=== PATIENT | female | born 1935 | race Hispanic/Latino ===

== ENCOUNTER 2021-11-29 15:50 | Inpatient (IN) | payer MEDICARE ==
[~2021-11-29] VITALS: Ht 170.2 cm; Wt 79.9 kg
[~2021-11-29 15:50] MED LIST: AEC81 PO; ALLO300T2 PO; AMLO-257 PO; ATOR40TA71 PO; BACL10TA PO; LEVO125C4 PO; MELA10TA2 PO; METO-408 PO; OMEP40CA21 PO
[2021-11-29] MEDS ORDERED: ACETAMINOPHEN 500 MG TABLET PO ONE (16:00)
[2021-11-29 16:05] LABS: BASOPHILS % (AUTO) 0.2 % (0.0-5.0); HEMATOCRIT 38.1 % (36-48); LYMPHOCYTES % (AUTO) 6.9 % (21.0-51.0); MEAN CORPUSCULAR HEMOGLOBIN 25.7 pg (27.0-33.0); MEAN CORPUSCULAR HGB CONC 31.8 g/dL (32.0-36.0); MEAN CORPUSCULAR VOLUME 80.9 fL (79-99); MONOCYTES % (AUTO) 3.4 % (3.0-13.0); NEUTROPHILS % (AUTO) 89.1 % (40.0-77.0); PLATELET COUNT (AUTO) 307 K/uL (130-400); RED BLOOD CELL COUNT(AUTO) 4.71 MIL/uL (4.00-5.50); RED CELL DISTRIBUTION WIDTH 13.9 % (11.0-15.5); WHITE BLOOD COUNT (AUTO) 14.5 K/uL (4.8-10.8)
[2021-11-29 16:20] LABS: CREATININE 0.7 mg/dL (0.5-1.5); POTASSIUM 3.4 mmol/L (3.5-5.1)
[2021-11-29 16:21] LABS: INR 1.09 (0.85-1.15); PROTHROMBIN TIME 11.8 SEC (9.6-11.6)
[2021-11-29 16:22] LABS: PARTIAL THROMBOPLASTIN TIME 24.6 SEC (26.3-35.5)
[2021-11-29 16:27] LABS: APPEARANCE,URINE CLOUDY (CLEAR); BILIRUBIN,URINE NEGATIVE (NEGATIVE); COLOR,URINE YELLOW (YELLOW); GLUCOSE, URINE (UA) NEGATIVE (NEGATIVE); KETONES,URINE 40 mg/dL (NEGATIVE); LEUKOCYTE ESTERASE ,URINE MODERATE (NEGATIVE); NITRATE,URINE POSITIVE (NEGATIVE); OCCULT BLOOD,URINE MODERATE (NEGATIVE); PROTEIN,URINE NEGATIVE (NEGATIVE); UROBILINOGEN,URINE 0.2 mg/dL (0.2-1.0)
[2021-11-29 16:31] LABS: BACTERIA,URINE Moderate /HPF (None Seen); MUCUS,URINE Few LPF (None Seen); SQUAMOUS EPITHELIAL CELL,UR Few /HPF (0-2); WBC,URINE 51-100 /HPF (0-1)
[2021-11-29 16:34] LABS: ALBUMIN 2.5 g/dL (3.5-5.0); BILIRUBIN,TOTAL 0.4 mg/dL (0.2-1.0)
[2021-11-29] MEDS: ACETAMINOPHEN 650 MG SUPPOSITORY RC ONE ×2 (16:42→17:06)
[2021-11-29] MEDS ORDERED: ACETAMINOPHEN 650 MG SUPPOSITORY RC ONE (17:00)
[2021-11-29] MEDS ORDERED: 0.9%NACL 1000ML 1,000 ML IV ONE (17:00)
[2021-11-29] MEDS: MEROPENEM 1 GM VIAL IVP SCH (17:05)
[2021-11-29] MEDS ORDERED: ACETAMINOPHEN 650 MG SUPPOSITORY RC PRN (18:30)
[2021-11-29] MEDS ORDERED: THIAMINE HCL 100 MG/ML 2ML VIAL IVP SCH (18:30)
[2021-11-29] MEDS ORDERED: PANTOPRAZOLE 40 MG/VIAL IVP ONE (18:30)
[2021-11-29] MEDS ORDERED: MAGNESIUM 2GM PREMIX 50ML 50 ML IV SCH (20:00)
[2021-11-29] MEDS ORDERED: PANTOPRAZOLE 40 MG/VIAL ONE (20:17)
[2021-11-29] MEDS: LACTATED RINGERS 1000ML 1,000 ML IV SCH (20:24)
[2021-11-29] MEDS ORDERED: NITROGLYCERIN 1GM OINT 1 INCH/1GM TD ONE (22:03)
[2021-11-29] MEDS ORDERED: MORPHINE 2 MG SYG ONE (22:03)
[2021-11-29] MEDS ORDERED: MORPHINE 2 MG SYG IVP PRN (22:30)
[2021-11-29] MEDS ORDERED: NITROGLYCERIN 1GM OINT 1 INCH/1GM TD SCH (22:30)
[2021-11-29 23:48] VITALS: BP 124/66
[2021-11-29] MEDS ORDERED: VENLAFAXINE PO (23:49)
[2021-11-30 00:34] VITALS: BP 122/63
[2021-11-30] MEDS ORDERED: 0.9%NACL 10ML VIAL ONE (00:43)
[2021-11-30] MEDS: MEROPENEM 1 GM VIAL IVP SCH ×3 (00:50→16:23)
[2021-11-30 04:00] VITALS: BP 125/62
[2021-11-30 05:27] LABS: BASOPHILS % (AUTO) 0.3 % (0.0-5.0); EOSINOPHILS % (AUTO) 0.4 % (0.0-8.0); HEMATOCRIT 34.7 % (36-48); LYMPHOCYTES % (AUTO) 13.1 % (21.0-51.0); MEAN CORPUSCULAR HEMOGLOBIN 26.4 pg (27.0-33.0); MEAN CORPUSCULAR HGB CONC 32.3 g/dL (32.0-36.0); MEAN CORPUSCULAR VOLUME 81.6 fL (79-99); MONOCYTES % (AUTO) 6.2 % (3.0-13.0); NEUTROPHILS % (AUTO) 79.6 % (40.0-77.0); PLATELET COUNT (AUTO) 272 K/uL (130-400); RED BLOOD CELL COUNT(AUTO) 4.25 MIL/uL (4.00-5.50); RED CELL DISTRIBUTION WIDTH 14.2 % (11.0-15.5); WHITE BLOOD COUNT (AUTO) 11.4 K/uL (4.8-10.8)
[2021-11-30] MEDS: NITROGLYCERIN 1GM OINT 1 INCH/1GM TD SCH ×2 (05:50→13:08)
[2021-11-30 05:51] LABS: ALBUMIN 2.1 g/dL (3.5-5.0); BILIRUBIN,TOTAL 0.5 mg/dL (0.2-1.0); CREATININE 0.6 mg/dL (0.5-1.5); CRP QUANTITATIVE 104.6 mg/L (0.00-9.0); MAGNESIUM 1.6 mg/dL (1.80-2.40); THYROID STIMULATING HORMONE 1.9 uIU/mL (0.36-3.74); TOTAL PROTEIN, SERUM 6.8 g/dL (6.0-8.3)
[2021-11-30] MEDS: HEPARIN 5,000 UNIT VIAL SQ SCH ×2 (05:51→16:23)
[2021-11-30 05:54] LABS: POTASSIUM 2.7 mmol/L (3.5-5.1)
[2021-11-30] MEDS: POTASSIUM CHLORIDE 20MEQ/100ML 100 ML IV PRN ×3 (06:03→14:53)
[2021-11-30] MEDS: LACTATED RINGERS 1000ML 1,000 ML IV SCH ×2 (06:38→21:38)
[2021-11-30 07:19] VITALS: BP 130/62
[2021-11-30] MEDS: METOPROLOL SUCCINATE 50 MG TAB.SR.24H PO SCH ×3 (09:00→21:36)
[2021-11-30] MEDS ORDERED: PANTOPRAZOLE 40 MG/VIAL IVP SCH (09:00)
[2021-11-30 11:08] VITALS: BP 126/67
[2021-11-30 15:26] VITALS: BP 123/57
[2021-11-30] MEDS ORDERED: HONEY 1 APPL/ML TUBE TP SCH (15:30)
[2021-11-30 19:43] VITALS: BP 128/68
[2021-11-30] MEDS: BALSAM PERU/CASTOR OIL 60 GM TUBE TP SCH (21:38)
[2021-12-01] VITALS: BP_SYST 122; BP_SYST 127; BP_DIAS 63; BP_DIAS 64
[2021-12-01] MEDS: MEROPENEM 1 GM VIAL IVP SCH ×3 (01:14→16:16)
[2021-12-01] MEDS: ENOXAPARIN SODIUM 30 MG/0.3 ML SQ SCH (04:22)
[2021-12-01 04:25] VITALS: BP 135/55
[2021-12-01 07:07] LABS: HEMATOCRIT 30.4 % (36-48); MEAN CORPUSCULAR HEMOGLOBIN 25.9 pg (27.0-33.0); MEAN CORPUSCULAR HGB CONC 31.3 g/dL (32.0-36.0); MEAN CORPUSCULAR VOLUME 82.8 fL (79-99); RED BLOOD CELL COUNT(AUTO) 3.67 MIL/uL (4.00-5.50); RED CELL DISTRIBUTION WIDTH 14.3 % (11.0-15.5); WHITE BLOOD COUNT (AUTO) 10.7 K/uL (4.8-10.8)
[2021-12-01 07:15] VITALS: BP 132/62
[2021-12-01] MEDS: LACTATED RINGERS 1000ML 1,000 ML IV SCH ×2 (07:47→20:30)
[2021-12-01] MEDS: BALSAM PERU/CASTOR OIL 60 GM TUBE TP SCH ×3 (07:50→21:39)
[2021-12-01] MEDS: METOPROLOL SUCCINATE 50 MG TAB.SR.24H PO SCH (07:50)
[2021-12-01 07:54] LABS: CREATININE 0.6 mg/dL (0.5-1.5); POTASSIUM 3.3 mmol/L (3.5-5.1)
[2021-12-01] MEDS: POTASSIUM CHLORIDE 20MEQ/100ML 100 ML IV PRN ×3 (07:59→22:27)
[2021-12-01] MEDS ORDERED: HONEY 1 APPL/ML TUBE TP SCH (09:00)
[2021-12-01] MEDS: METOPROLOL TARTRATE 25 MG TAB PO SCH ×2 (09:29→21:39)
[2021-12-01] MEDS: ASPIRIN 81MG CHEW TAB PO SCH (09:29)
[2021-12-01 10:55] VITALS: BP 132/69
[2021-12-01 11:54] LABS: MYOGLOBIN 295 ng/mL (10-92)
[2021-12-01 11:58] LABS: CREATINE KINASE, TOTAL 424 U/L (21-232)
[2021-12-01 15:00] VITALS: BP 125/68
[2021-12-01 19:25] VITALS: BP 130/62
[2021-12-02] VITALS: BP 127/64
[2021-12-02] MEDS: MEROPENEM 1 GM VIAL IVP SCH (01:21)
[2021-12-02 04:00] VITALS: BP 140/63
[2021-12-02] MEDS: ENOXAPARIN SODIUM 30 MG/0.3 ML SQ SCH (05:46)
[2021-12-02 08:00] VITALS: BP 152/86
[2021-12-02] MEDS ORDERED: MEROPENEM 1 GM VIAL ONE (08:18)
[2021-12-02] MEDS: ASPIRIN 81MG CHEW TAB PO SCH (08:27)
[2021-12-02] MEDS: METOPROLOL TARTRATE 25 MG TAB PO SCH (08:27)
[2021-12-02] MEDS: LACTATED RINGERS 1000ML 1,000 ML IV SCH (08:33)
[2021-12-02] MEDS: BALSAM PERU/CASTOR OIL 60 GM TUBE TP SCH ×2 (08:34→14:36)
[2021-12-02 09:04] LABS: CREATINE KINASE, TOTAL 194 U/L (21-232); MYOGLOBIN 114 ng/mL (10-92)
[2021-12-02] MEDS ORDERED: CEFUROXIME AXETIL 250 MG TABLET PO SCH (11:46)
[2021-12-02 12:00] VITALS: BP 148/58
[2021-12-02] MEDS ORDERED: CEFU250T87 PO (12:58)
[2021-12-02] MEDS ORDERED: ASPI-1005 PO (12:58)
[2021-12-02] MEDS ORDERED: STAR227P PO (13:00)
[2021-12-02 16:00] VITALS: BP 134/82
== END 2021-12-02 17:40 | disposition home or self-care (01) | DRG 871 ==
LOC: EDH 15:50 → EDHIP 18:21 → 2DH 23:43
PROVIDERS: ADMIT Internal Medicine; ATTEND Internal Medicine
DX: A41.9 Sepsis, unspecified organism (principal); E43 Unspecified severe protein-calorie malnutrition; N39.0 Urinary tract infection, site not specified; M62.82 Rhabdomyolysis; I24.8 Other forms of acute ischemic heart disease; I69.351 Hemiplegia and hemiparesis following cerebral infarction affecting right dominant side; Z68.27 Body mass index [BMI] 27.0-27.9, adult; Z88.0 Allergy status to penicillin; Z88.8 Allergy status to other drugs, medicaments and biological substances; Z20.822 Contact with and (suspected) exposure to COVID-19; F03.90 Unspecified dementia, unspecified severity, without behavioral disturbance, psychotic disturbance, mood disturbance, and anxiety; M19.90 Unspecified osteoarthritis, unspecified site; Z87.440 Personal history of urinary (tract) infections; E11.9 Type 2 diabetes mellitus without complications; I10 Essential (primary) hypertension; E87.6 Hypokalemia; E83.42 Hypomagnesemia; I25.10 Atherosclerotic heart disease of native coronary artery without angina pectoris; Z74.01 Bed confinement status; L89.152 Pressure ulcer of sacral region, stage 2; Z82.49 Family history of ischemic heart disease and other diseases of the circulatory system; E03.9 Hypothyroidism, unspecified; E78.5 Hyperlipidemia, unspecified; L89.509 Pressure ulcer of unspecified ankle, unspecified stage; M81.0 Age-related osteoporosis without current pathological fracture
CPT/HCPCS: 36415; 71045; 74018; 74230; 76770; 80048; 80053; 81001; 82550; 83605; 83735; 83874; 84132; 84145; 84443; 84484; 85025; 85027; 85610; 85651; 85730; 86140; 87040; 87077; 87088; 87186; 87635; 87804; 87880; 92610; 92611; 93005; 93970; 99291; C9113; G0378; J1644; J1650; J2185; J3475; J3480; J7120

== ENCOUNTER 2022-01-17 17:26 | Emergency (ER) | payer MEDICARE ==
[~2022-01-17] VITALS: Ht 165.1 cm; Wt 90.7 kg
[~2022-01-17 17:26] MED LIST changes: -AEC81 PO; +ASPI-1005 PO; +CEFU250T87 PO; +STAR227P PO; +VENLAFAXINE PO
[2022-01-17] MEDS ORDERED: 0.9%NACL 1000ML 1,000 ML IV ONE (18:00)
[2022-01-17 18:06] LABS: BASOPHILS % (AUTO) 0.2 % (0.0-5.0); EOSINOPHILS % (AUTO) 0.3 % (0.0-8.0); LYMPHOCYTES % (AUTO) 15.8 % (21.0-51.0); MEAN CORPUSCULAR HEMOGLOBIN 25.3 pg (27.0-33.0); MEAN CORPUSCULAR HGB CONC 30.5 g/dL (32.0-36.0); MEAN CORPUSCULAR VOLUME 82.8 fL (79-99); MONOCYTES % (AUTO) 4.8 % (3.0-13.0); NEUTROPHILS % (AUTO) 78.4 % (40.0-77.0); PLATELET COUNT (AUTO) 312 K/uL (130-400); RED BLOOD CELL COUNT(AUTO) 4.47 MIL/uL (4.00-5.50); RED CELL DISTRIBUTION WIDTH 16.8 % (11.0-15.5); WHITE BLOOD COUNT (AUTO) 12.2 K/uL (4.8-10.8)
[2022-01-17 18:23] LABS: APPEARANCE,URINE Clear (CLEAR); BILIRUBIN,URINE Negative (NEGATIVE); COLOR,URINE Yellow (YELLOW); GLUCOSE, URINE (UA) Negative (NEGATIVE); KETONES,URINE 15 mg/dL (NEGATIVE); LEUKOCYTE ESTERASE ,URINE Small (NEGATIVE); NITRATE,URINE Positive (NEGATIVE); OCCULT BLOOD,URINE Trace (NEGATIVE); PROTEIN,URINE POS 1+ mg/dL (NEGATIVE)
[2022-01-17 18:28] LABS: CREATININE 0.6 mg/dL (0.5-1.5); POTASSIUM 3.2 mmol/L (3.5-5.1)
[2022-01-17 18:35] LABS: BACTERIA,URINE Few /HPF (None Seen); RBC,URINE 0-1 /HPF (0-1)
[2022-01-17 18:36] LABS: SQUAMOUS EPITHELIAL CELL,UR Rare /HPF (0-2)
[2022-01-17 18:43] LABS: ALBUMIN 2.4 g/dL (3.5-5.0); BILIRUBIN,TOTAL 0.4 mg/dL (0.2-1.0); TOTAL PROTEIN, SERUM 7.6 g/dL (6.0-8.3)
[2022-01-18 02:10] VITALS: BP 155/85
== END 2022-01-18 02:30 | disposition home or self-care (01) ==
LOC: EDH 17:26
DX: R00.0 Tachycardia, unspecified (principal); T83.091A Other mechanical complication of indwelling urethral catheter, initial encounter; E11.9 Type 2 diabetes mellitus without complications; I10 Essential (primary) hypertension; M81.0 Age-related osteoporosis without current pathological fracture; Z88.0 Allergy status to penicillin; Z79.82 Long term (current) use of aspirin; Z79.899 Other long term (current) drug therapy; Z98.890 Other specified postprocedural states; Z86.73 Personal history of transient ischemic attack (TIA), and cerebral infarction without residual deficits
CPT/HCPCS: 36415; 80053; 81001; 82550; 83605; 84484; 85025; 87040 ×2; 87088; 93005; 99285; J7030

== ENCOUNTER 2022-03-10 17:49 | Inpatient (IN) | payer MEDICARE ==
[~2022-03-10] VITALS: Ht 170.2 cm; Wt 73.1 kg
[2022-03-10 18:30] LABS: BASOPHILS % (AUTO) 0.2 % (0.0-5.0); EOSINOPHILS % (AUTO) 1.3 % (0.0-8.0); HEMATOCRIT 34.2 % (36-48); LYMPHOCYTES % (AUTO) 20.6 % (21.0-51.0); MEAN CORPUSCULAR HGB CONC 31.6 g/dL (32.0-36.0); MEAN CORPUSCULAR VOLUME 82.4 fL (79-99); MONOCYTES % (AUTO) 5.5 % (3.0-13.0); NEUTROPHILS % (AUTO) 71.9 % (40.0-77.0); PLATELET COUNT (AUTO) 270 K/uL (130-400); RED BLOOD CELL COUNT(AUTO) 4.15 MIL/uL (4.00-5.50); RED CELL DISTRIBUTION WIDTH 17.1 % (11.0-15.5); WHITE BLOOD COUNT (AUTO) 11.9 K/uL (4.8-10.8)
[2022-03-10 18:41] LABS: PROTHROMBIN TIME 10.9 SEC (9.6-11.6)
[2022-03-10 18:42] LABS: PARTIAL THROMBOPLASTIN TIME 23.1 SEC (26.3-35.5)
[2022-03-10 18:47] LABS: ALBUMIN 1.8 g/dL (3.5-5.0); CREATININE 0.6 mg/dL (0.5-1.5); TOTAL PROTEIN, SERUM 6.6 g/dL (6.0-8.3)
[2022-03-10 18:54] LABS: B-TYPE NATRIURETIC PEPTIDE 255 pg/mL (0-100)
[2022-03-10 19:01] LABS: POTASSIUM 2.7 mmol/L (3.5-5.1)
[2022-03-10 19:38] LABS: APPEARANCE,URINE CLOUDY (CLEAR); BILIRUBIN,URINE NEGATIVE (NEGATIVE); COLOR,URINE YELLOW (YELLOW); GLUCOSE, URINE (UA) NEGATIVE (NEGATIVE); KETONES,URINE NEGATIVE (NEGATIVE); LEUKOCYTE ESTERASE ,URINE LARGE (NEGATIVE); NITRATE,URINE POSITIVE (NEGATIVE); OCCULT BLOOD,URINE LARGE (NEGATIVE); PROTEIN,URINE NEGATIVE (NEGATIVE)
[2022-03-10 19:45] LABS: WBC,URINE 26-50 /HPF (0-1)
[2022-03-10 19:46] LABS: BACTERIA,URINE Moderate /HPF (None Seen); CALCIUM OXALATE CRYSTALS,UR Few /LPF (None Seen); MUCUS,URINE Few LPF (None Seen); SQUAMOUS EPITHELIAL CELL,UR Few /HPF (0-2)
[2022-03-10 19:47] LABS: TRANSITIONAL EPI CELLS,URINE Few /HPF (None Seen)
[2022-03-10] MEDS ORDERED: 0.9% NACL 500ML IV.SOLN 500 ML IV ONE (20:18)
[2022-03-10] MEDS ORDERED: NS-20 MEQ KCL 1000ML 1,000 ML IV ONE (20:18)
[2022-03-10] MEDS ORDERED: ONDANSETRON 4MG INJ IV PRN (20:30)
[2022-03-10] MEDS ORDERED: ACETAMINOPHEN 325 MG TAB PO PRN (20:30)
[2022-03-10] MEDS ORDERED: MEROPENEM 1 GM VIAL IVP ONE (20:30)
[2022-03-10] MEDS ORDERED: LACTATED RINGERS 1000ML 1,848 ML IV ONE (20:30)
[2022-03-10] MEDS ORDERED: NOREPINEPHRIN 4MG/NS 250ML 250 ML IV SCH (20:30)
[2022-03-10] MEDS ORDERED: VANCOMYCIN PROTOCOL PER PHARMACY IV SCH (20:30)
[2022-03-10 20:42] LABS: CREATININE,URINE RANDOM 30 mg/dL (30-135); SODIUM,URINE RANDOM 146 mmol/l (40-220)
[2022-03-10] MEDS ORDERED: VANCOMYCIN 1.25 GM/250 ML BAG 250 ML IV ONE (21:00)
[2022-03-10] MEDS: LACTATED RINGERS 1000ML 1,000 ML IV SCH (21:37)
[2022-03-10] MEDS: CEFEPIME HCL 1 GM VIAL IVP SCH (21:38)
[2022-03-11] MEDS: HEPARIN 5,000 UNIT VIAL SQ SCH ×3 (02:56→17:45)
[2022-03-11] MEDS ORDERED: TRAM50TA4 PO (06:29)
[2022-03-11] MEDS ORDERED: DOCU100C33 PO (06:37)
[2022-03-11] MEDS ORDERED: ZINC220T4 PO (06:37)
[2022-03-11] MEDS ORDERED: BACL10TA PO (06:37)
[2022-03-11 07:34] LABS: BASOPHILS % (AUTO) 0.4 % (0.0-5.0); EOSINOPHILS % (AUTO) 0.9 % (0.0-8.0); HEMATOCRIT 35.7 % (36-48); LYMPHOCYTES % (AUTO) 21.7 % (21.0-51.0); MEAN CORPUSCULAR HEMOGLOBIN 25.9 pg (27.0-33.0); MEAN CORPUSCULAR HGB CONC 31.7 g/dL (32.0-36.0); MEAN CORPUSCULAR VOLUME 81.7 fL (79-99); MONOCYTES % (AUTO) 5.4 % (3.0-13.0); NEUTROPHILS % (AUTO) 70.7 % (40.0-77.0); PLATELET COUNT (AUTO) 275 K/uL (130-400); RED BLOOD CELL COUNT(AUTO) 4.37 MIL/uL (4.00-5.50); RED CELL DISTRIBUTION WIDTH 16.9 % (11.0-15.5); WHITE BLOOD COUNT (AUTO) 11.3 K/uL (4.8-10.8)
[2022-03-11] MEDS: LACTATED RINGERS 1000ML 1,000 ML IV SCH ×2 (07:42→16:30)
[2022-03-11 07:51] LABS: CREATININE 0.5 mg/dL (0.5-1.5); MAGNESIUM 1.2 mg/dL (1.80-2.40); POTASSIUM 3.1 mmol/L (3.5-5.1)
[2022-03-11] MEDS: CEFEPIME HCL 1 GM VIAL IVP SCH ×2 (08:31→22:57)
[2022-03-11] MEDS: VANCOMYCIN 1G/250ML KIT 250 ML IV SCH (08:31)
[2022-03-11] MEDS: FAMOTIDINE 20MG VIAL IV SCH (08:31)
[2022-03-11] MEDS ORDERED: ENOXAPARIN SODIUM 40 MG/0.4 ML SYRINGE SQ SCH (09:00)
[2022-03-11] MEDS ORDERED: MAGNESIUM 2GM PREMIX 50ML 50 ML IV ONE (10:06)
[2022-03-11] MEDS: MAGNESIUM 2GM PREMIX 50ML 50 ML IV SCH ×2 (10:19→11:25)
[2022-03-11] MEDS: ASCORBIC ACID 500 MG TAB PO SCH (10:20)
[2022-03-11] MEDS: ZINC SULFATE 220 CAPSULE PO SCH (10:20)
[2022-03-11] MEDS ORDERED: LIDOCAINE HCL 1% 10 ML VIAL ONE (11:16)
[2022-03-11] MEDS: LIDOCAINE HCL-MPF 1% 2ML VIAL IV PRN ×2 (11:24→15:01)
[2022-03-11] MEDS: POTASSIUM CHLORIDE 20MEQ/100ML 100 ML IV PRN ×2 (11:24→15:01)
[2022-03-11] MEDS: NYSTATIN 15 GM POWDER TP SCH ×3 (12:04→23:11)
[2022-03-11] MEDS: ACETAMINOPHEN 325 MG TAB PO PRN (12:05)
[2022-03-11] MEDS: NEUTRA-PHOS PACKET 1 EACH PO SCH ×3 (13:27→23:44)
[2022-03-11 16:57] VITALS: BP 92/52
[2022-03-11 19:00] VITALS: BP 116/41
[2022-03-12] VITALS: BP 134/65
[2022-03-12] MEDS: HEPARIN 5,000 UNIT VIAL SQ SCH ×3 (01:39→17:20)
[2022-03-12] MEDS: LACTATED RINGERS 1000ML 1,000 ML IV SCH ×4 (02:50→22:58)
[2022-03-12 04:00] VITALS: BP 122/65
[2022-03-12 07:58] LABS: HEMATOCRIT 30.1 % (36-48); MEAN CORPUSCULAR HEMOGLOBIN 25.3 pg (27.0-33.0); MEAN CORPUSCULAR HGB CONC 31.2 g/dL (32.0-36.0); MEAN CORPUSCULAR VOLUME 80.9 fL (79-99); RED BLOOD CELL COUNT(AUTO) 3.72 MIL/uL (4.00-5.50); RED CELL DISTRIBUTION WIDTH 17.2 % (11.0-15.5); WHITE BLOOD COUNT (AUTO) 10.1 K/uL (4.8-10.8)
[2022-03-12 08:00] VITALS: BP 133/55
[2022-03-12 08:10] LABS: CREATININE 0.6 mg/dL (0.5-1.5); MAGNESIUM 1.9 mg/dL (1.80-2.40); PHOSPHORUS 2.2 mg/dL (2.5-4.9); POTASSIUM 3.3 mmol/L (3.5-5.1)
[2022-03-12 08:13] LABS: INR 1.01 (0.85-1.15)
[2022-03-12 08:15] LABS: PARTIAL THROMBOPLASTIN TIME 34.5 SEC (26.3-35.5)
[2022-03-12] MEDS: NEUTRA-PHOS PACKET 1 EACH PO SCH ×3 (09:00→17:21)
[2022-03-12] MEDS ORDERED: FAMOTIDINE 20MG VIAL IV SCH (09:00)
[2022-03-12] MEDS: VANCOMYCIN 1G/250ML KIT 250 ML IV SCH (10:03)
[2022-03-12] MEDS: CEFEPIME HCL 1 GM VIAL IVP SCH ×2 (10:03→19:47)
[2022-03-12] MEDS: FAMOTIDINE 20MG VIAL IV SCH (10:04)
[2022-03-12] MEDS: ASCORBIC ACID 500 MG TAB PO SCH (10:04)
[2022-03-12] MEDS: ZINC SULFATE 220 CAPSULE PO SCH (10:04)
[2022-03-12] MEDS: NYSTATIN 15 GM POWDER TP SCH ×3 (10:14→19:48)
[2022-03-12 12:00] VITALS: BP 135/67
[2022-03-12 12:28] LABS: % IRON SATURATION 27.6 % (22-44)
[2022-03-12 12:43] LABS: RETICULOCYTE % (AUTO) 1.5 % (0.42-2.23)
[2022-03-12] MEDS: KCL 20 MEQ ERTAB PO PRN ×3 (12:48→18:46)
[2022-03-12 16:00] VITALS: BP 151/45
[2022-03-12] MEDS: 0.9%NACL 10ML VIAL IV SCH ×2 (17:21→22:59)
[2022-03-12 19:00] VITALS: BP 117/58
[2022-03-12] MEDS: METOPROLOL TARTRATE 25 MG TAB PO SCH (19:47)
[2022-03-12] MEDS: BALSAM PERU/CASTOR OIL 60 GM TUBE TP SCH (19:48)
[2022-03-12] MEDS: HONEY 1 APPL/ML TUBE TP SCH (19:48)
[2022-03-12] MEDS ORDERED: VANCOMYCIN 500MG+NS 100ML 100 ML IV SCH (21:00)
[2022-03-13] VITALS: BP 124/58
[2022-03-13] MEDS: HEPARIN 5,000 UNIT VIAL SQ SCH ×3 (00:28→18:26)
[2022-03-13 04:00] VITALS: BP 115/52
[2022-03-13] MEDS: ACETAMINOPHEN 325 MG TAB PO PRN (05:22)
[2022-03-13 08:00] VITALS: BP 120/66
[2022-03-13] MEDS: FAMOTIDINE 20MG VIAL IV SCH (08:14)
[2022-03-13] MEDS: 0.9%NACL 10ML VIAL IV SCH ×2 (08:14→18:24)
[2022-03-13] MEDS: CEFEPIME HCL 1 GM VIAL IVP SCH ×2 (08:15→21:17)
[2022-03-13] MEDS: METOPROLOL TARTRATE 25 MG TAB PO SCH ×2 (08:15→21:20)
[2022-03-13] MEDS: ASCORBIC ACID 500 MG TAB PO SCH (08:15)
[2022-03-13] MEDS: ZINC SULFATE 220 CAPSULE PO SCH (08:15)
[2022-03-13] MEDS: NYSTATIN 15 GM POWDER TP SCH ×3 (08:16→21:23)
[2022-03-13] MEDS: BALSAM PERU/CASTOR OIL 60 GM TUBE TP SCH ×2 (08:16→21:24)
[2022-03-13] MEDS: HONEY 1 APPL/ML TUBE TP SCH (08:16)
[2022-03-13 12:00] VITALS: BP 105/44
[2022-03-13 16:00] VITALS: BP 106/45
[2022-03-13] MEDS: LACTATED RINGERS 1000ML 1,000 ML IV SCH (18:30)
[2022-03-13 19:00] VITALS: BP 138/67
[2022-03-14] VITALS (7 sets, daily range): BP systolic 88–143; BP diastolic 44–78
[2022-03-14] MEDS: 0.9%NACL 10ML VIAL IV SCH ×3 (01:11→17:08)
[2022-03-14] MEDS: HEPARIN 5,000 UNIT VIAL SQ SCH ×3 (01:37→17:09)
[2022-03-14] MEDS: LACTATED RINGERS 1000ML 1,000 ML IV SCH (03:51)
[2022-03-14 07:44] LABS: BASOPHILS % (AUTO) 0.4 % (0.0-5.0); EOSINOPHILS % (AUTO) 1.4 % (0.0-8.0); HEMATOCRIT 31.4 % (36-48); LYMPHOCYTES % (AUTO) 29.2 % (21.0-51.0); MEAN CORPUSCULAR HEMOGLOBIN 25.8 pg (27.0-33.0); MEAN CORPUSCULAR HGB CONC 31.5 g/dL (32.0-36.0); MEAN CORPUSCULAR VOLUME 81.8 fL (79-99); MONOCYTES % (AUTO) 5.9 % (3.0-13.0); NEUTROPHILS % (AUTO) 62.5 % (40.0-77.0); PLATELET COUNT (AUTO) 244 K/uL (130-400); RED BLOOD CELL COUNT(AUTO) 3.84 MIL/uL (4.00-5.50); RED CELL DISTRIBUTION WIDTH 17.4 % (11.0-15.5); WHITE BLOOD COUNT (AUTO) 10.1 K/uL (4.8-10.8)
[2022-03-14 08:06] LABS: ALBUMIN 1.5 g/dL (3.5-5.0); CREATININE 0.6 mg/dL (0.5-1.5); POTASSIUM 3.5 mmol/L (3.5-5.1); TOTAL PROTEIN, SERUM 5.6 g/dL (6.0-8.3)
[2022-03-14] MEDS: FAMOTIDINE 20MG VIAL IV SCH (08:49)
[2022-03-14] MEDS: METOPROLOL TARTRATE 25 MG TAB PO SCH ×2 (08:49→20:43)
[2022-03-14] MEDS: CEFEPIME HCL 1 GM VIAL IVP SCH ×2 (08:49→20:23)
[2022-03-14] MEDS: ZINC SULFATE 220 CAPSULE PO SCH (08:49)
[2022-03-14] MEDS: ASCORBIC ACID 500 MG TAB PO SCH (08:50)
[2022-03-14] MEDS: MAGNESIUM 2GM PREMIX 50ML 50 ML IV SCH (08:50)
[2022-03-14] MEDS: BALSAM PERU/CASTOR OIL 60 GM TUBE TP SCH ×2 (08:57→20:45)
[2022-03-14] MEDS: HONEY 1 APPL/ML TUBE TP SCH (08:57)
[2022-03-14] MEDS: NYSTATIN 15 GM POWDER TP SCH ×3 (08:57→20:45)
[2022-03-14] MEDS: LIDOCAINE HCL-MPF 1% 2ML VIAL IV PRN ×2 (12:52→17:10)
[2022-03-14] MEDS: POTASSIUM CHLORIDE 20MEQ/100ML 100 ML IV PRN ×2 (12:52→17:10)
[2022-03-15] MEDS: 0.9%NACL 10ML VIAL IV SCH ×4 (00:52→21:06)
[2022-03-15] MEDS: HEPARIN 5,000 UNIT VIAL SQ SCH ×3 (02:14→17:40)
[2022-03-15 03:13] VITALS: BP 107/52
[2022-03-15 07:13] VITALS: BP 123/55
[2022-03-15 08:36] LABS: HEMATOCRIT 28.7 % (36-48); MEAN CORPUSCULAR HEMOGLOBIN 25.8 pg (27.0-33.0); MEAN CORPUSCULAR HGB CONC 31.4 g/dL (32.0-36.0); MEAN CORPUSCULAR VOLUME 82.2 fL (79-99); RED BLOOD CELL COUNT(AUTO) 3.49 MIL/uL (4.00-5.50); RED CELL DISTRIBUTION WIDTH 17.5 % (11.0-15.5); WHITE BLOOD COUNT (AUTO) 8.5 K/uL (4.8-10.8)
[2022-03-15 08:49] LABS: CREATININE 0.6 mg/dL (0.5-1.5); POTASSIUM 3.8 mmol/L (3.5-5.1)
[2022-03-15] MEDS: FAMOTIDINE 20MG VIAL IV SCH (10:31)
[2022-03-15] MEDS: CEFEPIME HCL 1 GM VIAL IVP SCH ×2 (10:31→21:05)
[2022-03-15] MEDS: METOPROLOL TARTRATE 25 MG TAB PO SCH ×2 (10:31→21:05)
[2022-03-15] MEDS: HONEY 1 APPL/ML TUBE TP SCH ×2 (10:32→21:06)
[2022-03-15] MEDS: ASCORBIC ACID 500 MG TAB PO SCH (10:32)
[2022-03-15] MEDS: ZINC SULFATE 220 CAPSULE PO SCH (10:32)
[2022-03-15] MEDS: NYSTATIN 15 GM POWDER TP SCH ×3 (10:32→21:05)
[2022-03-15] MEDS: BALSAM PERU/CASTOR OIL 60 GM TUBE TP SCH ×2 (10:33→21:05)
[2022-03-15 12:09] VITALS: BP 130/58
[2022-03-15 16:20] VITALS: BP 130/62
[2022-03-15 20:11] VITALS: BP 127/71
[2022-03-15 23:40] VITALS: BP 128/53
[2022-03-16] MEDS: HEPARIN 5,000 UNIT VIAL SQ SCH ×3 (01:55→17:41)
[2022-03-16 03:14] VITALS: BP 116/64
[2022-03-16] MEDS: LEVOTHYROXINE 125 MCG TABLET PO SCH (05:52)
[2022-03-16 07:30] VITALS: BP 144/66
[2022-03-16] MEDS: CEFEPIME HCL 1 GM VIAL IVP SCH ×2 (09:03→20:46)
[2022-03-16] MEDS: FAMOTIDINE 20MG VIAL IV SCH (09:03)
[2022-03-16] MEDS: ATORVASTATIN 40 MG TABLET PO SCH (09:04)
[2022-03-16] MEDS: ASCORBIC ACID 500 MG TAB PO SCH (09:04)
[2022-03-16] MEDS: METOPROLOL TARTRATE 25 MG TAB PO SCH ×2 (09:04→20:47)
[2022-03-16] MEDS: ASPIRIN 81MG CHEW TAB PO SCH (09:04)
[2022-03-16] MEDS: ZINC SULFATE 220 CAPSULE PO SCH (09:04)
[2022-03-16] MEDS: HONEY 1 APPL/ML TUBE TP SCH ×2 (09:05→20:49)
[2022-03-16] MEDS: NYSTATIN 15 GM POWDER TP SCH ×3 (09:05→20:48)
[2022-03-16] MEDS: BALSAM PERU/CASTOR OIL 60 GM TUBE TP SCH ×2 (09:06→20:49)
[2022-03-16 11:00] VITALS: BP 129/61
[2022-03-16 12:46] LABS: HEMATOCRIT 27.9 % (36-48); MEAN CORPUSCULAR HEMOGLOBIN 26.2 pg (27.0-33.0); MEAN CORPUSCULAR HGB CONC 31.5 g/dL (32.0-36.0); RED BLOOD CELL COUNT(AUTO) 3.36 MIL/uL (4.00-5.50); RED CELL DISTRIBUTION WIDTH 17.7 % (11.0-15.5); WHITE BLOOD COUNT (AUTO) 8.9 K/uL (4.8-10.8)
[2022-03-16 13:27] LABS: CREATININE 0.6 mg/dL (0.5-1.5); POTASSIUM 3.3 mmol/L (3.5-5.1)
[2022-03-16 16:00] VITALS: BP 159/77
[2022-03-16] MEDS: POTASSIUM CHLORIDE 10% ELIXIR 20 MEQ/15 ML UDCUP PO PRN ×2 (17:39→21:05)
[2022-03-16 20:07] VITALS: BP 98/62
[2022-03-16] MEDS: ACETAMINOPHEN 325 MG TAB PO PRN (20:48)
[2022-03-16 23:48] VITALS: BP 122/50
[2022-03-17] MEDS: POTASSIUM CHLORIDE 10% ELIXIR 20 MEQ/15 ML UDCUP PO PRN (00:14)
[2022-03-17] MEDS: HEPARIN 5,000 UNIT VIAL SQ SCH ×2 (01:28→09:23)
[2022-03-17 03:56] VITALS: BP 116/67
[2022-03-17 04:54] LABS: HEMATOCRIT 27.7 % (36-48); MEAN CORPUSCULAR HGB CONC 31.4 g/dL (32.0-36.0); MEAN CORPUSCULAR VOLUME 82.7 fL (79-99); RED BLOOD CELL COUNT(AUTO) 3.35 MIL/uL (4.00-5.50); RED CELL DISTRIBUTION WIDTH 17.5 % (11.0-15.5); WHITE BLOOD COUNT (AUTO) 7.9 K/uL (4.8-10.8)
[2022-03-17] MEDS: LEVOTHYROXINE 125 MCG TABLET PO SCH (04:55)
[2022-03-17 05:05] LABS: CREATININE 0.6 mg/dL (0.5-1.5); MAGNESIUM 1.9 mg/dL (1.80-2.40); POTASSIUM 3.9 mmol/L (3.5-5.1)
[2022-03-17] MEDS: MAGNESIUM 2GM PREMIX 50ML 50 ML IV SCH (05:36)
[2022-03-17 08:22] VITALS: BP 152/71
[2022-03-17] MEDS: METOPROLOL TARTRATE 25 MG TAB PO SCH (09:20)
[2022-03-17] MEDS: ZINC SULFATE 220 CAPSULE PO SCH (09:20)
[2022-03-17] MEDS: CEFEPIME HCL 1 GM VIAL IVP SCH (09:20)
[2022-03-17] MEDS: ATORVASTATIN 40 MG TABLET PO SCH (09:20)
[2022-03-17] MEDS: ASCORBIC ACID 500 MG TAB PO SCH (09:20)
[2022-03-17] MEDS: FAMOTIDINE 20MG VIAL IV SCH (09:20)
[2022-03-17] MEDS: ASPIRIN 81MG CHEW TAB PO SCH (09:20)
[2022-03-17] MEDS: HONEY 1 APPL/ML TUBE TP SCH (09:21)
[2022-03-17] MEDS: NYSTATIN 15 GM POWDER TP SCH ×2 (09:21→14:19)
[2022-03-17] MEDS: BALSAM PERU/CASTOR OIL 60 GM TUBE TP SCH (09:21)
[2022-03-17 11:45] VITALS: BP 135/57
[2022-03-17 17:10] VITALS: BP 127/50
== END 2022-03-17 18:04 | DRG 871 ==
LOC: EDH 17:49 → EDHIP 20:29 → 3DH 03-11 15:35
PROVIDERS: ADMIT Hospitalist; ATTEND Hospitalist
DX: A41.9 Sepsis, unspecified organism (principal); N17.0 Acute kidney failure with tubular necrosis; R53.2 Functional quadriplegia; R65.21 Severe sepsis with septic shock; N39.0 Urinary tract infection, site not specified; L89.322 Pressure ulcer of left buttock, stage 2; L89.622 Pressure ulcer of left heel, stage 2; E87.6 Hypokalemia; E83.42 Hypomagnesemia; E83.39 Other disorders of phosphorus metabolism; D64.9 Anemia, unspecified; L89.150 Pressure ulcer of sacral region, unstageable; F03.90 Unspecified dementia, unspecified severity, without behavioral disturbance, psychotic disturbance, mood disturbance, and anxiety; E78.00 Pure hypercholesterolemia, unspecified; I25.10 Atherosclerotic heart disease of native coronary artery without angina pectoris; N31.9 Neuromuscular dysfunction of bladder, unspecified; Z83.3 Family history of diabetes mellitus; Z82.3 Family history of stroke; Z88.0 Allergy status to penicillin; Z88.1 Allergy status to other antibiotic agents; Z88.8 Allergy status to other drugs, medicaments and biological substances; Z74.01 Bed confinement status
CPT/HCPCS: 36415; 71045; 80048; 80053; 80202; 81001; 82550; 82570; 82728; 82746; 82948; 83540; 83550; 83605; 83735; 83880; 83935; 84100; 84145; 84300; 84443; 84484; 85025; 85027; 85045; 85610; 85730; 87040; 87070; 87077; 87088; 87186; 92610; 93005; C1894; G0378; J0692; J1644; J2185; J3370; J3475; J3480; J3490; J7040; J7120